=== PATIENT | female | born 1990 | race Asian ===

== ENCOUNTER 2018-07-29 17:19 | Emergency (ER) | payer OTHER ==
[~2018-07-29] VITALS: Ht 152.4 cm; Wt 79.0 kg
[2018-07-29 17:23] VITALS: BP 169/123
--- NOTE | 2018-07-29 17:33 | NUR ---
patient to er bed 10
[2018-07-29] MEDS ORDERED: NACL 0.9% 1,000 ML IV ONE (17:35)
[2018-07-29] MEDS ORDERED: LORazepam 2 MG/ML VIAL IVP ONE (17:35)
--- NOTE | 2018-07-29 17:37 | NUR ---
Dr. Jeffers bedside evaluating patient
--- NOTE | 2018-07-29 17:56 | NUR ---
PT BIB FAMILY C/O DRUG INGESTION, HAD A EDIBLE MARIJUANA COOKIE. REPORTS PALPITATIONS, TONGUE NUMBNESS, SLEEPINESS. Pupils equal and reactive to light bilaterally. No facial droop noted. No smile deficit noted. Speech normal for patient. Patient is alert and oriented to person, place, time and event. Bilateral hand rock wool insulator equal. Bilateral foot push equal. IV 20GA RT A/C DONE, IVP MEDS GIVEN-NADR AT THIS TIME. VSS, PT STABLE, FAMILY AT BEDSIDE.
--- NOTE | 2018-07-29 19:10 | NUR ---
RECEIVED REPORT FROM ERICA PEACE.
--- NOTE | 2018-07-29 19:37 | NUR ---
PT GAVE URINE SAMPLE. PT RESTING COMFORTABLY IN BED.
[2018-07-29 20:04] VITALS: BP 115/69
--- NOTE | 2018-07-29 20:04 | NUR ---
Patient discharged with v/s stable. Written and verbal after care instructions given and explained. Patient verbalized understanding. Ambulatory with steady gait. All questions addressed prior to discharge. Advised to follow up with PMD.
== END 2018-07-29 20:04 | disposition home or self-care (01) ==
LOC: MED 17:19
DX: T40.7X5A Adverse effect of cannabis (derivatives), initial encounter (principal); E11.9 Type 2 diabetes mellitus without complications; Y92.89 Other specified places as the place of occurrence of the external cause
CPT/HCPCS: 81002; 81025; 93005; 96374; 99283; J2060; J7030